=== PATIENT | male | born 1960 | race Caucasian/White ===

== ENCOUNTER 2021-03-25 13:28 | Emergency (ER) | payer OTHER ==
[2021-03-25] MEDS ORDERED: Sodium Chloride 0.9% 10 ML Syringe FLUSH PRN (13:42)
[2021-03-25] MEDS ORDERED: Sodium Chloride 0.9% 1,000 ML IV SCH (13:45)
[2021-03-25 19:09] VITALS: BP 126/82; PULSE 94
== END 2021-03-25 16:19 | disposition home or self-care (01) ==
LOC: FB.ED 13:28
DX: U07.1 COVID-19 (principal); E86.0 Dehydration; N17.9 Acute kidney failure, unspecified; E03.9 Hypothyroidism, unspecified; Z79.899 Other long term (current) drug therapy
CPT/HCPCS: 36415; 70450; 83605; 84484; 86140; 93010; 99284; 99284-25; J7030

== ENCOUNTER 2021-08-21 15:42 | Emergency (ER) | payer OTHER ==
[2021-08-21] MEDS ORDERED: Sodium Chloride 0.9% 1,000 ML IV SCH (16:00)
[2021-08-21 18:08] VITALS: BP 132/74; PULSE 100
== END 2021-08-21 18:05 | disposition home or self-care (01) ==
LOC: FB.ED 15:42
DX: K50.90 Crohn's disease, unspecified, without complications (principal); I10 Essential (primary) hypertension; J44.9 Chronic obstructive pulmonary disease, unspecified; F41.9 Anxiety disorder, unspecified; F32.A Depression, unspecified; F17.210 Nicotine dependence, cigarettes, uncomplicated; Z79.899 Other long term (current) drug therapy
CPT/HCPCS: 36415; 74176; 81001; 82150; 83690; 99284; J7030

== ENCOUNTER 2022-12-04 18:49 | Emergency (ER) | payer OTHER ==
[2022-12-04] MEDS ORDERED: predniSONE 20 MG Tab PO ONE (18:50)
[2022-12-04] MEDS: hydrOXYzine HCl 50 MG/ML SDV IM ONE (19:26)
[2022-12-04] MEDS: HYDROmorphone 2 MG/ML SDV IM ONE (19:27)
[2022-12-04 19:33] LABS: BASOPHILS PERCENT AUTO 0.3 % (0.3-3.8); EOSINOPHILS ABSOLUTE AUTO 0.3 x10-3/uL (0.0-0.6); EOSINOPHILS PERCENT AUTO 2.1 % (0.1-6.8); HEMATOCRIT 41.3 % (38.3-50.1); HEMOGLOBIN 14.4 g/dL (12.9-17.7); LYMPHOCYTES ABSOLUTE AUTO 2.1 x10-3/uL (0.5-4.5); LYMPHOCYTES PERCENT AUTO 15.2 % (15.8-45.3); MEAN CORPUSCULAR HEMOGLOBIN 32.5 pg (27.0-33.3); MEAN CORPUSCULAR HGB CONC 34.8 g/dL (28.7-35.3); MEAN CORPUSCULAR VOLUME 93.6 fL (80.8-98.7); MONOCYTES ABSOLUTE AUTO 1.2 x10-3/uL (0.0-1.2); MONOCYTES PERCENT AUTO 9.1 % (5.5-15.2); NEUTROPHILS PERCENT AUTO 73.3 % (40.3-71.8); PLATELET COUNT,PLT 266 x10(3)uL (117-477); RED BLOOD CELL COUNT 4.42 x10(6)uL (3.90-5.90); RED CELL DISTRIBUTION WIDTH 13.2 % (12.4-15.0); WHITE BLOOD CELL COUNT,WBC 13.7 x10-3/uL (3.2-10.1)
[2022-12-04 19:37] LABS: C-REACTIVE PROTEIN 0.56 mg/dL (<0.33)
[2022-12-04 19:54] LABS: ALBUMIN 3.7 g/dL (3.2-4.6); BILIRUBIN TOTAL 0.3 mg/dL (0.1-1.3); BLOOD UREA NITROGEN,BUN 15 mg/dL (7-18); BUN/CREATININE RATIO 11.5 (9-20); CALCIUM 9.1 mg/dL (8.6-10.2); CARBON DIOXIDE,CO2 27 mmol/L (21-32); CHLORIDE,CL 104 mmol/L (100-110); CREATININE 1.3 mg/dL (0.70-1.30); EST CRCL DRUG DOSING (CG) 58.16 mL/min; ESTIMATED GFR 62 mL/min (>60); GLUCOSE RANDOM 130 mg/dL (80-116); POTASSIUM,K 3.8 mmol/L (3.5-5.3); PROTEIN TOTAL,TP 7.6 g/dL (6.0-8.0); SODIUM,NA 140 mmol/L (135-145)
[2022-12-04 19:55] LABS: ALANINE AMINOTRANSFERASE,ALT 23 U/L (12-36); ALKALINE PHOSPHATASE 91 IU/L (56-112); ASPARTATE AMNIOTRANSFERASE,AST 10 IU/L (5-25)
[2022-12-04 21:25] VITALS: BP 148/85; PULSE 89
== END 2022-12-04 19:53 | disposition home or self-care (01) ==
LOC: FB.ED 18:49
DX: K50.90 Crohn's disease, unspecified, without complications (principal); I10 Essential (primary) hypertension; J44.9 Chronic obstructive pulmonary disease, unspecified; E03.9 Hypothyroidism, unspecified; E66.9 Obesity, unspecified; F17.210 Nicotine dependence, cigarettes, uncomplicated; Z68.32 Body mass index [BMI] 32.0-32.9, adult
CPT/HCPCS: 36415; 80053; 83605; 83690; 85025; 86140; 96372; 99283; 99284; J1170; J3410; J7512

== ENCOUNTER 2022-12-05 08:31 | Emergency (ER) | payer OTHER ==
[2022-12-05] MEDS: fentaNYL 100 MCG/2 ML SDV IM ONE (09:10)
[2022-12-05] MEDS: Ondansetron 4 MG Tab.DIS PO ONE (09:11)
[2022-12-05 09:46] VITALS: BP 132/80; PULSE 120
== END 2022-12-05 09:40 | disposition home or self-care (01) ==
LOC: FB.ED 08:31
DX: R10.9 Unspecified abdominal pain (principal); I10 Essential (primary) hypertension; J44.9 Chronic obstructive pulmonary disease, unspecified; E03.9 Hypothyroidism, unspecified; E66.9 Obesity, unspecified; Z68.32 Body mass index [BMI] 32.0-32.9, adult; Z79.899 Other long term (current) drug therapy; Z98.890 Other specified postprocedural states
CPT/HCPCS: 96372; 99283; J3010; Q0162

== ENCOUNTER 2022-12-06 07:55 | Emergency (ER) | payer OTHER ==
[2022-12-06] MEDS ORDERED: Sodium Chloride 0.9% 10 ML Syringe FLUSH PRN (08:46)
[2022-12-06] MEDS ORDERED: Sodium Chloride 0.9% 1,000 ML IV SCH ×2 (09:00→13:15)
[2022-12-06 09:18] LABS: BLOOD UREA NITROGEN,BUN 24 mg/dL (7-18); BUN/CREATININE RATIO 18.5 (9-20); CALCIUM 9.5 mg/dL (8.6-10.2); CARBON DIOXIDE,CO2 26 mmol/L (21-32); CHLORIDE,CL 102 mmol/L (100-110); CREATININE 1.3 mg/dL (0.70-1.30); EST CRCL DRUG DOSING (CG) 58.16 mL/min; ESTIMATED GFR 62 mL/min (>60); GLUCOSE RANDOM 119 mg/dL (80-116); HEMATOCRIT 47.1 % (38.3-50.1); HEMOGLOBIN 16.3 g/dL (12.9-17.7); MEAN CORPUSCULAR HEMOGLOBIN 32.4 pg (27.0-33.3); MEAN CORPUSCULAR HGB CONC 34.7 g/dL (28.7-35.3); MEAN CORPUSCULAR VOLUME 93.4 fL (80.8-98.7); MEAN PLATELET VOLUME 8.8 fL (6.7-11.0); PLATELET COUNT,PLT 260 x10(3)uL (117-477); POTASSIUM,K 4.5 mmol/L (3.5-5.3); RED BLOOD CELL COUNT 5.04 x10(6)uL (3.90-5.90); RED CELL DISTRIBUTION WIDTH 13.3 % (12.4-15.0); SODIUM,NA 135 mmol/L (135-145); WHITE BLOOD CELL COUNT,WBC 14.2 x10-3/uL (3.2-10.1)
[2022-12-06 09:24] LABS: A/G RATIO 0.8; ALANINE AMINOTRANSFERASE,ALT 37 U/L (12-36); ALBUMIN 3.6 g/dL (3.2-4.6); ALKALINE PHOSPHATASE 94 IU/L (56-112); AMYLASE 46 U/L (25-115); ASPARTATE AMNIOTRANSFERASE,AST 23 IU/L (5-25); BILIRUBIN TOTAL 0.7 mg/dL (0.1-1.3); PROTEIN TOTAL,TP 7.9 g/dL (6.0-8.0)
[2022-12-06 09:26] LABS: INR 1.06 (1.00-1.24); PROTHROMBIN TIME 10.9 sec (9.0-11.1); PTT,PARTIAL THROMBOPLSTIN TIME 21.6 SECONDS (24.4-33.2)
[2022-12-06 09:36] LABS: LYMPHOCYTES PERCENT MAN 14 % (13-37); MONOCYTES PERCENT MAN 10 % (4-12); SEG NEUTROPHILS PERCENT MAN 76 % (46-82)
[2022-12-06] MEDS ORDERED: Iopamidol 755 Mg/ML 100 ML Bottle IV SCH (10:15)
[2022-12-06] MEDS ORDERED: Nicotine 14 MG/24 Hr Patch TRDERM ONE (11:04)
[2022-12-06 12:23] LABS: BILIRUBIN,URINE NEGATIVE (NEGATIVE); GLUCOSE,URINE NORMAL (NORMAL); KETONES,URINE NEGATIVE (NEGATIVE); LEUKOCYTE ESTERASE,URINE NEGATIVE (NEGATIVE); NITRITE,URINE NEGATIVE (NEGATIVE); OCCULT BLOOD,URINE NEGATIVE (NEGATIVE); PROTEIN,URINE NEGATIVE (NEGATIVE); UROBILINOGEN,URINE NORMAL (NEGATIVE)
[2022-12-06 12:32] LABS: APPEARANCE,URINE CLEAR (CLEAR); BACTERIA,URINE OCCASIONAL (NS); COLOR,URINE YELLOW (YELLOW); SQUAMOUS EPITHELIAL CELLS,UR OCCASIONAL (NS,R,O)
[2022-12-06 17:07] VITALS: BP 135/79; PULSE 90
== END 2022-12-06 16:50 | disposition home or self-care (01) ==
LOC: FB.ED 07:55
DX: K50.00 Crohn's disease of small intestine without complications (principal); K56.609 Unspecified intestinal obstruction, unspecified as to partial versus complete obstruction; I10 Essential (primary) hypertension; J44.9 Chronic obstructive pulmonary disease, unspecified; E03.9 Hypothyroidism, unspecified; E66.9 Obesity, unspecified; F17.210 Nicotine dependence, cigarettes, uncomplicated; Z68.32 Body mass index [BMI] 32.0-32.9, adult; Z79.899 Other long term (current) drug therapy
CPT/HCPCS: 36415; 74177; 80053; 81001; 82150; 83690; 85025; 85610; 85730; 96360; 96361; 99284; A9270; J3490; J7030; Q9967

== ENCOUNTER 2023-01-14 06:13 | Day surgery (SDC) | payer OTHER ==
[2023-01-14] MEDS ORDERED: Midazolam 1 MG/ML 2 ML SDV IV ONE (06:14)
[2023-01-14] MEDS ORDERED: Ketamine 500 mg/10 ML MDV IV ONE (06:14)
[2023-01-14] MEDS ORDERED: Propofol 200 MG/20 ML SDV IV ONE (06:14)
[2023-01-14] MEDS ORDERED: Lactated Ringers 1,000 ML IV SCH (06:15)
[2023-01-14] MEDS ORDERED: Sodium Chloride 0.9% 10 ML Syringe FLUSH PRN (06:15)
[2023-01-14] MEDS ORDERED: Simethicone Drops 40 MG/0.6 ML 30 ML Bottle PO ONE (07:50)
[2023-01-14 10:38] VITALS: BP 121/81; PULSE 88
== END 2023-01-14 09:20 | disposition home or self-care (01) ==
LOC: FB.SDS 06:13
PROVIDERS: ATTEND Surgery
DX: Z12.11 Encounter for screening for malignant neoplasm of colon (principal); K52.9 Noninfective gastroenteritis and colitis, unspecified; K56.699 Other intestinal obstruction unspecified as to partial versus complete obstruction; E03.9 Hypothyroidism, unspecified; F17.210 Nicotine dependence, cigarettes, uncomplicated; Z98.0 Intestinal bypass and anastomosis status; Z86.010 Personal history of colon polyps; Z90.49 Acquired absence of other specified parts of digestive tract; Z87.19 Personal history of other diseases of the digestive system; Z80.0 Family history of malignant neoplasm of digestive organs; Z79.52 Long term (current) use of systemic steroids; Z79.890 Hormone replacement therapy; Z79.899 Other long term (current) drug therapy; Z88.8 Allergy status to other drugs, medicaments and biological substances; Z93.3 Colostomy status
CPT/HCPCS: 00811; 88305; A9270-GY; J2250; J2704; J3490; J7120